=== PATIENT | male | born 1965 | race Caucasian/White ===

== ENCOUNTER 2019-07-01 15:01 | Emergency (ER) | payer OTHER ==
[~2019-07-01] VITALS: Ht 185.4 cm; Wt 90.7 kg
[2019-07-01 15:22] VITALS: BP 122/79
--- NOTE | 2019-07-01 15:23 | NUR ---
ARRIVAL PATIENT ARRIVED TO ED[facility] AMBULATORY, C/O OF BACK PAIN SINCE FRIDAY, PATIENT STATES HE WAS PULLING HIS SEMI TRUCK INTO AN AREA WHEN HE HIT THE PIER CAUSES HIM TO JAR HIS BACK, ATTEMPTED TO TREAT HIMSELF AT HOME, CAME TO THE ED FOR EVAL.
--- NOTE | 2019-07-01 15:28 | ER.PDOC ---
General Chief Complaint: Lower Back Pain or Injury Stated Complaint: BACK PAIN Time seen by MD: 16:00 Source: patient Exam Limitations: no limitations History of Present Illness Timing/Duration: week Severity/Quality: moderate Radiation: upper legs Method of Injury: twisted Modifying Factors: improves with immobilization, improves with pain medication, improves with rest Associated Symptoms: muscle spasms Allergies: Coded Allergies: No Known Allergies (Unverified , 07/01/19) Home Meds No Active Prescriptions or Reported Meds Past Medical History Medical History: no pertinent history Surgical History: no surgical history Social History Smoking: cigarettes Alcohol Use: heavy Drug Use: none Reviewed Nursing Reviewed: Vital Signs, Abn. Noted Review of Systems All Other Systems: Reviewed and Negative Physical Exam General Appearance: No Apparent Distress, WD/WN HEENT: PERRL/EOMI, Normal ENT Inspection, TMs Normal, Pharynx Normal Neck: Non-Tender, Normal Alignment Cardiovascular/Respiratory: Regular Rate, Rhythm, No M/R/G, Normal Peripheral Pulses, No JVD, Normal Breath Sounds, No Respiratory Distress Gastrointestinal: Normal Bowel Sounds, No Organomegaly, No Pulsatile Mass, Non Tender, Soft Back: Other (r si joint tenderness) Extremities: No Evidence of Injury, Normal Range of Motion, Non-Tender, No Pedal Edema, Pelvis Stable, Other (SLR 60 DEG R SIDE) Neuro/Psych: Alert, cognos report developer nml/symmetrical, mood/effect nml, No Motor/Sensory Deficits, Relexes nml Skin: Normal Color, Warm/Dry Results/Orders Results/Orders Vital Signs Date Time Temp Pulse Resp B/P (MAP) Pulse Ox O2 Delivery O2 Flow Rate FiO2 07/01/19 15:22 98.1 102 20 122/79 (93) 95 Room Air 07/01/19 15:19 98.1 102 20 95 Room Air 07/01/19 15:17 98.1 102 20 Departure Time of Disposition: 16:00 Disposition: 01 HOME, SELF-CARE Impression: Primary Impression: Lumbar sprain Condition: Improved Referrals: SHAYE HUBER DO, MD (PCP) PRIMARY CARE PROVIDER Scripts No Active Prescriptions or Reported Meds Duration or Time Spent with Pa: MARCIE BARRETT MD Jul 01, 2019 15:28
[2019-07-01] MEDS ORDERED: DEMEROL ONE (15:32)
[2019-07-01] MEDS ORDERED: TORADOL ONE (15:32)
[2019-07-01] MEDS ORDERED: VALIUM ONE (15:33)
[2019-07-01] MEDS: DEMEROL IM STA (15:38)
[2019-07-01] MEDS: TORADOL IM ONE (15:39)
[2019-07-01] MEDS: VALIUM IM STA (15:42)
[2019-07-01] MEDS: VALIUM PO STA (15:42)
[2019-07-01 16:00] VITALS: BP_SYST 122; BP_SYST 134; BP_DIAS 79; BP_DIAS 88
== END 2019-07-01 15:56 | disposition home or self-care (01) ==
LOC: ER 15:01
DX: S33.5XXA Sprain of ligaments of lumbar spine, initial encounter (principal); F17.210 Nicotine dependence, cigarettes, uncomplicated; X50.9XXA Other and unspecified overexertion or strenuous movements or postures, initial encounter; Y93.89 Activity, other specified; Y92.89 Other specified places as the place of occurrence of the external cause; Y99.8 Other external cause status
CPT/HCPCS: 96372; 99284; J1885; J2175

== ENCOUNTER 2019-10-06 11:41 | Emergency (ER) | payer OTHER ==
[~2019-10-06] VITALS: Ht 185.4 cm; Wt 90.7 kg
[2019-10-06 11:51] VITALS: BP 151/105
[2019-10-06 12:05] VITALS: BP 151/105
--- NOTE | 2019-10-06 12:58 | NUR ---
AMA PT LEFT AT THIS TIME AMA. PT STATES THAT HE HAS A EMERGENCY THAT HAS COME UP AT HOME. PT EDUCATED ABOUT RISK OF LEAVING WITHOUT COMPLETING VISIT. PT CONTINUED TO SAY HEVíctor MUST LEAVE AT THIS TIME.
--- NOTE | 2019-10-06 13:00 | ER.PDOC ---
General Chief Complaint: Back Pain/Injury Stated Complaint: BACK PAIN Time seen by MD: 12:20 Source: patient History of Present Illness Initial Comments He reports he picked up a feed sack yesterday (approx 50lbs), then this morning he woke with marked LBP. He has a significant history of back/neck surgeries. He took 1200mg of IBP when he woke up at 0530 this morning without relief. He went to see his chiropractor this am and recieved E-stim, US, and an adjustment he did get minimal relief from that adjustment. He reports movement worsens the pain, denies any leg pain, but does have pain about the bilateral mid-buttocks (SI joints). Radiation: buttocks Method of Injury: lifting Allergies: Coded Allergies: No Known Allergies (Unverified , 07/01/19) Home Meds No Active Prescriptions or Reported Meds Past Medical History Medical History: no pertinent history (Multiple surgeries including a Lumbar Doll about L5/S1 and He was told he has disc issues L2/4. ) Surgical History: tonsillectomy, other (Lumbar Doll) Social History Smoking: cigarettes Alcohol Use: rarely Drug Use: none Review of Systems Musculoskeletal: see HPI All Other Systems: Reviewed and Negative Physical Exam General Appearance: No Apparent Distress HEENT: PERRL/EOMI Cardiovascular/Respiratory: Regular Rate, Rhythm, Normal Breath Sounds Gastrointestinal: Normal Bowel Sounds Back: Normal Inspection, Vertebral Tenderness (L4-Sacrum) Extremities: Normal Range of Motion, Pain With Movement Neuro/Psych: Oriented x 3, Abnormal Gait (Guarded movements with ambulation) Skin: Normal Color, Warm/Dry Results/Orders Results/Orders Vital Signs Date Time Temp Pulse Resp B/P (MAP) Pulse Ox O2 Delivery O2 Flow Rate FiO2 10/06/19 12:05 98.0 107 18 151/105 (120) 96 Room Air 10/06/19 12:05 98.0 107 18 10/06/19 11:51 98.0 107 18 96 Course Sepsis Screening Results: Posi: POSITIVE SEPSIS RISK Duration or Total Time Spent w: 17 M Vitals & review Data Vital Sign - Last 24 Hours 10/06/19 10/06/19 10/06/19 11:51 12:05 12:05 Temp 98.0 98.0 98.0 Pulse 107 107 107 Resp 18 18 18 B/P (MAP) 151/105 (120) Pulse Ox 96 96 O2 Delivery Room Air Sepsis Infection Criteria Pres: None O2 Sat by Pulse Oximetry: 96 Departure Time of Disposition: 12:55 Disposition: 07 AGAINST MEDICAL ADVICE Impression: Primary Impression: Low back pain Condition: Against Medical Advice Referrals: SHAYE HUBER DO, MD (PCP) PRIMARY CARE PROVIDER Additional Instructions: He left AMA stating he had an emergent situation at home. Advised to follow up with PCP or return to complete evaluation for continued or worsening symptoms Scripts No Active Prescriptions or Reported Meds Duration or Time Spent with Pa: 15 GEMA CEE NP Oct 06, 2019 13:00
== END 2019-10-06 12:58 | disposition left against medical advice (07) ==
LOC: ER 11:41
DX: M54.5 Low back pain (principal); R26.89 Other abnormalities of gait and mobility; F17.210 Nicotine dependence, cigarettes, uncomplicated; Z90.89 Acquired absence of other organs
CPT/HCPCS: 99281